=== PATIENT | female | born 1990 | race African-American/Black ===

== ENCOUNTER 2016-08-25 15:40 | Observation (INO) | payer MEDICAID ==
[~2016-08-25] VITALS: Ht 162.6 cm; Wt 68.9 kg
[2016-08-25] MEDS ORDERED: AUD NEB (16:52)
== END 2016-08-25 18:00 | disposition home or self-care (01) ==
LOC: 4S 15:40
PROVIDERS: ADMIT Obstetrics & Gynecology; ATTEND Obstetrics & Gynecology
DX: O26.893 Other specified pregnancy related conditions, third trimester (principal); R10.9 Unspecified abdominal pain; O99.513 Diseases of the respiratory system complicating pregnancy, third trimester; J45.909 Unspecified asthma, uncomplicated; Z3A.35 35 weeks gestation of pregnancy
CPT/HCPCS: 59025; G0378